=== PATIENT | female | born 2005 | race African-American/Black ===

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

== ENCOUNTER 2023-05-30 11:11 | Emergency (ER) | payer OTHER ==
[2023-05-30 11:55] VITALS: BP 113/60; BMI 21.7
[2023-05-30] MEDS ORDERED: ACETAMINOPHEN 500 MG TABLET (FP) PO ONE (11:56)
[2023-05-30] MEDS ORDERED: ACETAMINOPHEN 500 MG TABLET (FP) ONE ×2 (12:23→12:24)
[2023-05-30] MEDS ORDERED: ONDANSETRON *ODT* 4 MG TABLET SL ONE (12:27)
[2023-05-30] MEDS ORDERED: ONDANSETRON *ODT* 4 MG TABLET ONE (12:28)
[2023-05-30 13:07] LABS: THROAT:GRP A STREP NOT DETECTED (NOTDETECTED)
[2023-05-30 13:28] VITALS: PULSE 102; RESP 20; TEMP 100.1
== END 2023-05-30 14:33 | disposition home or self-care (01) ==
LOC: JERFT 11:11 → JER 11:11 → JERFT 14:33
DX: R50.9 Fever, unspecified (principal); M79.10 Myalgia, unspecified site; R05.9 Cough, unspecified; R09.81 Nasal congestion; J02.9 Acute pharyngitis, unspecified; R11.2 Nausea with vomiting, unspecified; J10.1 Influenza due to other identified influenza virus with other respiratory manifestations; Z20.822 Contact with and (suspected) exposure to COVID-19
CPT/HCPCS: 0241U-QW; 87651; 99283-25; Q0162